=== PATIENT | female | born 2000 | race Caucasian/White ===

== ENCOUNTER 2023-04-02 18:34 | Inpatient (IN) ==
[2023-04-02 20:25] LABS: ABS Lymphocytes 0.3 10^3/uL (1.0-4.8); ABS Monocytes 1.5 10^3/uL (0.0-0.9); ABS Neutrophils 13.2 10^3/uL (1.5-7.6); ABS Nucleated RBC 0.01 10^3/ul; Hematocrit 35.5 % (35-45); Hemoglobin 11.9 g/dL (11.5-14.3); Lymphocyte % 2.2 %; Mean Corpuscular Hemoglobin 27.1 pg (27-33); Mean Corpuscular Hgb Conc 33.6 g/dL (31-36); Mean Corpuscular Volume 80.8 fL (80-97); Mean Platelet Volume 8.7 fL (7.5-11.2); Platelet Count 211 10^3/uL (150-450); Red Blood Count 4.39 10^6/uL (3.63-4.92); Red Cell Distribution Width 15.8 % (12-17); White Blood Count 15.1 10^3/uL (3.8-11.8)
[2023-04-02 20:45] LABS: ALT 12 U/L (7-52); AST 13 U/L (13-39); Albumin/Globulin Ratio 1.1 (1-3); Alkaline Phosphatase 77 U/L (35-149); Anion Gap 11 mmol/L (2-16); Blood Urea Nitrogen 13 mg/dL (6-24); C Reactive Protein 189.22 mg/L (<8.01); CO2 Carbon Dioxide 23 mmol/L (22-32); Chloride 97 mmol/L (101-111); Globulin 3.7 g/dL (2-4); Glucose 112 mg/dL (70-100); Lipase 10 U/L (11.0-82.0); Potassium 3.3 mmol/L (3.5-5.0); Sodium 131 mmol/L (135-145); Total Bilirubin 0.6 mg/dL (0.2-1.0); Total Protein 7.7 g/dL (6.4-8.9); eGFR CKD-EPI 82.2 (>60)
[2023-04-02 20:51] LABS: HCG Pregnancy < 0.60 mIU/mL
[2023-04-02 20:52] LABS: Urine Appearance Cloudy; Urine Bilirubin Negative (Negative); Urine Blood 2+ (Negative); Urine Color Amber; Urine Glucose Negative (Negative); Urine Ketones 1+ (Negative); Urine Nitrite Negative (Negative); Urine Protein 2+(100 mg/dL) (Negative); Urine Specific Gravity 1.033 (1.002-1.030); Urine Urobilinogen Negative (Negative)
[2023-04-02 21:01] LABS: Urine Bacteria Absent (Absent); Urine Red Blood Cell 3+(>10/hpf) (Absent); Urine Squamous Epithelial Cell Present (Absent); Urine White Blood Cell Trace(0-5/hpf) (Absent)
[2023-04-02] MEDS ORDERED: Piperacillin/Tazobac 3.375 BAG 3.375 GM/100 ML BAG IV ONE (21:19)
[2023-04-02] MEDS ORDERED: Lactated Ringers 1000 ml BAG 1,000 ML IV ONE (21:48)
[2023-04-02] MEDS ORDERED: Ondansetron 4 mg VIAL 2 MG/ML 2 ml VIAL IV ONE (21:48)
[2023-04-02] MEDS ORDERED: Iohexol 300 (CONTRAST) 10 ML SDV IV ONE (22:12)
[2023-04-03] MEDS ORDERED: Lactated Ringers 1000 ml BAG 1,000 ML IV ONE (00:23)
[2023-04-03] MEDS ORDERED: Ondansetron 4 mg VIAL 2 MG/ML 2 ml VIAL IV PRN ×2 (00:48→14:02)
[2023-04-03] MEDS ORDERED: oxyCODONE/Acetamin 5/325 mg TAB PO PRN ×2 (00:48→14:21)
[2023-04-03] MEDS ORDERED: HYDROmorphone 1 MG/1 ML SYRINGE IV SLOW PU PRN (00:48)
[2023-04-03] MEDS ORDERED: Metoclopramide 5 MG/ML VIAL (10 mg) IV PRN (00:53)
[2023-04-03] MEDS ORDERED: Calcium Carb (TUMS) 500 mg CHEW TAB PO PRN (00:53)
[2023-04-03] MEDS ORDERED: Lactated Ringers 1000 ml BAG 1,000 ML IV SCH (01:00)
[2023-04-03] MEDS ORDERED: cefTRIAXone 1 gm/50 mL D5W 1 GM/50 ML BAG IV SCH (01:00)
[2023-04-03] MEDS ORDERED: metroNIDAZOLE IV 500 MG/100ML 500 MG/100 ML BAG IVPB SCH (02:00)
[2023-04-03] MEDS: cefTRIAXone 1 GM Q24H (ADVAN) IVPB SCH (02:11)
[2023-04-03] MEDS: metroNIDAZOLE IV 500 MG/100ML 500 MG/100 ML BAG IVPB SCH ×3 (04:17→20:28)
[2023-04-03 07:12] LABS: Hematocrit 29.4 % (35-45); Hemoglobin 9.9 g/dL (11.5-14.3); Mean Corpuscular Hemoglobin 27.1 pg (27-33); Mean Corpuscular Hgb Conc 33.7 g/dL (31-36); Mean Corpuscular Volume 80.6 fL (80-97); Mean Platelet Volume 9.4 fL (7.5-11.2); Platelet Count 175 10^3/uL (150-450); Red Blood Count 3.65 10^6/uL (3.63-4.92); Red Cell Distribution Width 15.7 % (12-17); White Blood Count 14.5 10^3/uL (3.8-11.8)
[2023-04-03 07:19] LABS: Albumin 3.4 g/dL (3.2-5.2); Albumin/Globulin Ratio 1.1 (1-3); Calcium 8.4 mg/dL (8.6-10.3); Creatinine, Serum 0.87 mg/dL (0.51-0.95); Globulin 3.1 g/dL (2-4); Potassium 3.4 mmol/L (3.5-5.0); Total Bilirubin 0.5 mg/dL (0.2-1.0); Total Protein 6.5 g/dL (6.4-8.9); eGFR CKD-EPI 97.1 (>60)
[2023-04-03 09:50] LABS: ABS Lymphocytes 0.9 10^3/uL (1.0-4.8); ABS Monocytes 1.6 10^3/uL (0.0-0.9); ABS Neutrophils 11.9 10^3/uL (1.5-7.6); ABS Nucleated RBC 0.01 10^3/ul; Eosinophil % 0.2 %; Lymphocyte % 6.1 %; Nucleated Red Blood Cells % 0.1 %/100WBC (0.0-0.8)
[2023-04-03] MEDS ORDERED: Bupivacaine 0.25% SDV 30 ML ONE (10:30)
[2023-04-03] MEDS ORDERED: Midazolam 2 mg/2 ml VIAL 1 mg/ml 2 ml VIAL (2 mg) ONE (12:13)
[2023-04-03] MEDS ORDERED: fentaNYL 100 mcg/2 ml 50 MCG/ML VIAL ONE ×2 (12:13→14:41)
[2023-04-03] MEDS ORDERED: Lidocaine 2% PF 5 ML VIAL ONE (12:14)
[2023-04-03] MEDS ORDERED: Rocuronium 50 mg VIAL 10 mg/ml 5 ml VIAL (50 mg) ONE (12:14)
[2023-04-03] MEDS ORDERED: Succinylcholine 200 mg VIAL 20 mg/ml 10 ml VIAL (200 mg) ONE (12:14)
[2023-04-03] MEDS ORDERED: Propofol 10 MG/ML 20 ML BTL ONE (12:14)
[2023-04-03] MEDS ORDERED: Dexamethasone IV 4 MG/ML VIAL 1 ml VIAL ONE (13:00)
[2023-04-03] MEDS ORDERED: Ondansetron 4 mg VIAL 2 MG/ML 2 ml VIAL ONE ×2 (13:00→15:00)
[2023-04-03] MEDS ORDERED: Naloxone 0.4 mg VIAL 0.4 mg/ml 1 ml VIAL IV PRN (14:02)
[2023-04-03] MEDS ORDERED: HYDROmorphone 1 MG/1 ML SYRINGE ONE (14:41)
[2023-04-03] MEDS: fentaNYL 100 mcg/2 ml 50 MCG/ML VIAL IV PRN ×2 (14:42→14:58)
[2023-04-03] MEDS: HYDROmorphone 1 MG/1 ML SYRINGE IV PRN ×2 (14:42→14:58)
[2023-04-03] MEDS: Lactated Ringers 1000 ml BAG 1,000 ML IV SCH (16:35)
[2023-04-04] MEDS: cefTRIAXone 1 GM Q24H (ADVAN) IVPB SCH (02:26)
[2023-04-04] MEDS: Lactated Ringers 1000 ml BAG 1,000 ML IV SCH (04:20)
[2023-04-04] MEDS: metroNIDAZOLE IV 500 MG/100ML 500 MG/100 ML BAG IVPB SCH ×3 (04:31→21:15)
[2023-04-04 07:58] LABS: ABS Lymphocytes 0.5 10^3/uL (1.0-4.8); ABS Monocytes 0.7 10^3/uL (0.0-0.9); ABS Neutrophils 11.2 10^3/uL (1.5-7.6); Hematocrit 28.8 % (35-45); Hemoglobin 9.6 g/dL (11.5-14.3); Lymphocyte % 3.9 %; Mean Corpuscular Hgb Conc 33.2 g/dL (31-36); Mean Corpuscular Volume 81.2 fL (80-97); Mean Platelet Volume 9.3 fL (7.5-11.2); Platelet Count 197 10^3/uL (150-450); Red Blood Count 3.54 10^6/uL (3.63-4.92); Red Cell Distribution Width 16.3 % (12-17); White Blood Count 12.3 10^3/uL (3.8-11.8)
[2023-04-04 08:12] LABS: Calcium 8.2 mg/dL (8.6-10.3); Creatinine, Serum 0.75 mg/dL (0.51-0.95); Potassium 3.9 mmol/L (3.5-5.0); eGFR CKD-EPI 116.1 (>60)
[2023-04-05] MEDS: cefTRIAXone 1 GM Q24H (ADVAN) IVPB SCH (02:04)
[2023-04-05] MEDS: metroNIDAZOLE IV 500 MG/100ML 500 MG/100 ML BAG IVPB SCH (04:43)
[2023-04-05 08:29] LABS: ABS Lymphocytes 1.7 10^3/uL (1.0-4.8); ABS Monocytes 1.1 10^3/uL (0.0-0.9); ABS Neutrophils 9.3 10^3/uL (1.5-7.6); Eosinophil % 0.4 %; Hematocrit 26.4 % (35-45); Lymphocyte % 13.8 %; Mean Corpuscular Hemoglobin 27.4 pg (27-33); Mean Corpuscular Volume 80.6 fL (80-97); Mean Platelet Volume 8.9 fL (7.5-11.2); Platelet Count 208 10^3/uL (150-450); Red Blood Count 3.28 10^6/uL (3.63-4.92); Red Cell Distribution Width 16.4 % (12-17); White Blood Count 12.2 10^3/uL (3.8-11.8)
[2023-04-05] MEDS ORDERED: Enoxaparin 40 MG/0.4 ML SYR SUBCUT SCH (09:00)
[2023-04-05 11:25] VITALS: BP 86/84
== END 2023-04-05 14:00 | disposition home or self-care (01) | DRG 225 ==
LOC: ED 18:34 → EDHOLD 04-03 00:48 → SSU 04-03 02:18
PROVIDERS: ADMIT Surgery; ATTEND Surgery